=== PATIENT | male | born 1970 | race Caucasian/White ===

== ENCOUNTER 2022-12-30 12:56 | Emergency (ER) | payer OTHER, SELFPAY ==
[2022-12-30 14:12] VITALS: BMI 30.5
[2022-12-30 14:21] VITALS: BP 142/86; PULSE 58; O2SAT 96
[2022-12-30] MEDS: KETOROLAC 30 MG/ML VIAL IM (15:27)
[2022-12-30] MEDS: CYCLOBENZAPRINE 10 MG TABLET PO (15:27)
[2022-12-30] MEDS: OXYCODONE/ACETAMINOPHEN 5/325 TABLET 1 TAB PO (16:20)
[2022-12-30] MEDS: HYDROMORPHONE 1 MG INJ IM (17:39)
[2022-12-30] MEDS: LIDOCAINE PATCH 1 EACH ADH..PATCH TOP (17:47)
--- NOTE | 2022-12-30 18:22 | DI.CT.S_ITS ---
PROCEDURE: CT LUMBAR SPINE WO CON INDICATIONS: Lower back pain TECHNIQUE: Noncontrast 3 mm thick sections acquired from the T12 level to the sacrum. Sagittal and coronal reformats were constructed. For radiation dose reduction, the following was used: automated exposure control. COMPARISON: None. FINDINGS: Image quality: Excellent. Bones: There is mild levocurvature; otherwise normal bony alignment. No acute vertebral body compression fractures. No suspicious lytic or blastic bony lesions. No pars defects. There is degenerative disc disease, mild at T10-T11 and L3-L4, mild at L2-L3, L4-L5 and L5-S1. Mild facet arthropathy at L3-L4, L4-L5 and L5-S1 bilaterally. Soft tissues: No retroperitoneal masses or hematomas. Visualized aorta is normal in caliber. IMPRESSION: 1. No acute osseous abnormalities. 2. Degenerative changes as described. Dictated by: Boogie Mukherjee M.D. on 12/30/2022 at 19:05 Approved by: Boogie Mukherjee M.D. on 12/30/2022 at 19:08
--- NOTE | 2022-12-30 18:27 | ED_ITS ---
HPI - Back Pain/Injury <Sid Yun PA-C - Last Filed: 01/06/23 19:04> General Chief Complaint: Back Pain/Injury Stated Complaint: severe lower back pain Time Seen by Provider: 12/30/22 14:33 Source: patient History of Present Illness HPI Narrative: 52-year-old male with no reported past medical history presents to the ED with 1 day of lower back pain. 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 Patient states he was unable to stand or walk after that. Patient reports that the pain is right of the midline in the lower back region. Pain does not radiate. Patient denies numbness, tingling, weakness, saddle paresthesias, urinary hesitancy, urinary incontinence, bowel incontinence. Patient denies drug use. Related Data Allergies Allergy/AdvReac Type Severity Reaction Status Date / Time No Known Drug Allergies Allergy Verified 12/30/22 14:12 Review of Systems <Sid Yun PA-C - Last Filed: 01/06/23 19:04> Review of Systems ROS Unobtainable: All systems reviewed & are unremarkable except as noted in HPI and below Constitutional Constitutional: Denies chills, Denies fatigue, Denies fever(s), Denies frequent falls, Denies lethargy and Denies weakness Eyes Eyes: Denies change in vision, Denies eye discharge, Denies irritation and Denies loss of vision ENT Ears, Nose, Mouth, and Throat: Denies change in voice, Denies dizziness, Denies neck pain, Denies sore throat and Denies throat swelling Cardiovascular Cardiovascular: Denies chest pain, Denies irregular heart rhythm, Denies lightheadedness, Denies palpitations, Denies dyspnea, Denies dyspnea on exertion and Denies orthopnea Respiratory Respiratory: Denies cough, Denies dyspnea, Denies dyspnea on exertion and Denies wheezing Gastrointestinal Gastrointestinal: Denies abdominal pain, Denies change in bowel habits, Denies diarrhea, Denies nausea and Denies vomiting Genitourinary Genitourinary: Denies hematuria, Denies flank pain, Denies urinary incontinence and Denies urinary urgency Musculoskeletal Musculoskeletal: Reports back pain, Denies muscle weakness, Denies neck pain, Denies numbness and Denies tingling Integumentary/Breasts Skin/Breast: Denies pruritus, Denies erythema, Denies rash and Denies wounds Neurologic Neurologic: Denies behavioral changes, Denies confusion, Denies dizziness, Denies frequent falls, Denies loss of vision, Denies numbness, Denies tingling and Denies weakness Psychiatric Psychiatric: Denies anxiety, Denies behavioral changes, Denies confusion, Denies depression, Denies homicidal ideation and Denies suicidal ideation Endocrine Endocrine: Denies fatigue, Denies flushing and Denies palpitations Hematologic/Lymphatic Hematologic/Lymphatic: Denies easy bruising Allergic/Immunologic Allergic/Immunologic: Denies urticaria, Denies throat swelling and Denies wheezing Patient History <Sid Yun PA-C - Last Filed: 01/06/23 19:04> Social History Smoking Status: Never smoker Smoking Status: Never smoker alcohol intake frequency: holidays/special occasions only Substance Use Type: does not use Exam <Sid Yun PA-C - Last Filed: 01/06/23 19:04> Narrative Exam Narrative: Const General:?cooperative, healthy appearing and comfortable [facility] Head:?normal to inspection Ears:?hearing grossly normal bilaterally Nose:?external nose normal Face and sinus:?normal facial exam and sinuses nontender Mouth:?oral mucosae normal Throat:?posterior oropharynx normal Eyes General:?appearance normal, both eyes and all related structures Neck Neck:?normal visual inspection and no lymphadenopathy noted Resp Effort & Inspection:?normal respiratory effort Auscultation:?clear to auscultation bilaterally Cardio Rate:?regular rate Rhythm:?regular rhythm Musculoskeletal No midline tenderness to palpation. No paraspinal tenderness to palpation. No bruising, rashes visualized on exam. Range of motion limited by pain. Strength and sensation intact. Patient appears neurovascularly intact. Neuro General:?patient alert, patient awake and patient oriented x3 Initial Vital Signs Initial Vital Signs: Vital Signs Pulse Rate 58 L 12/30/22 14:21 Blood Pressure 142/86 H 12/30/22 14:21 Pulse Oximetry 96 12/30/22 14:21 Oxygen Delivery Method 12/30/22 14:21 <Osman Han DO - Last Filed: 01/06/23 19:15> Initial Vital Signs Initial Vital Signs: Vital Signs Pulse Rate 58 L 12/30/22 14:21 Blood Pressure 142/86 H 12/30/22 14:21 Pulse Oximetry 96 12/30/22 14:21 Oxygen Delivery Method 12/30/22 14:21 Course <Sid Yun PA-C - Last Filed: 01/06/23 19:04> Orders Ordered: Discontinued Medications Cephalexin HCl (Cephalexin 250 Mg Capsule) 500 mg PO NOW ONE Stop: 12/30/22 17:07 Last Admin: 12/30/22 18:27 Dose: Not Given Documented By: KARLEY Cyclobenzaprine HCl (Cyclobenzaprine 10 Mg Tablet) 10 mg PO NOW ONE Stop: 12/30/22 15:19 Last Admin: 12/30/22 15:27 Dose: 10 mg Documented By: LEONIE Diazepam (Diazepam 5 Mg Tablet) 10 mg PO NOW ONE Stop: 12/30/22 20:00 Last Admin: 12/30/22 20:20 Dose: 10 mg Documented By: RANJAN Hydromorphone HCl (Hydromorphone 1 Mg Inj) 1 mg IM NOW ONE Stop: 12/30/22 17:34 Last Admin: 12/30/22 17:39 Dose: 1 mg Documented By: LEONIE Ketorolac Tromethamine (Ketorolac 30 Mg/Ml Vial) 30 mg IM NOW ONE Stop: 12/30/22 15:19 Last Admin: 12/30/22 15:27 Dose: 30 mg Documented By: LEONIE Lidocaine (Lidocaine Patch 1 Each Adh..Patch) 1 each TOP NOW ONE Stop: 12/30/22 17:18 Last Admin: 12/30/22 17:47 Dose: 1 each Documented By: LEONIE Methocarbamol (Methocarbamol 500 Mg Tablet) 750 mg PO NOW ONE Stop: 12/30/22 18:21 Last Admin: 12/30/22 18:44 Dose: 750 mg Documented By: LEONIE Oxycodone/Acetaminophen (Oxycodone/Acetaminophen 5/325 Tablet) 1 tab PO NOW ONE Stop: 12/30/22 16:17 Last Admin: 12/30/22 16:20 Dose: 1 tab Documented By: LEONIE Trimethoprim/Sulfamethoxazole (Trimeth/Sulfa 160/800 (Ds) Tablet) 1 tab PO NOW ONE Stop: 12/30/22 17:07 Last Admin: 12/30/22 18:28 Dose: Not Given Documented By: KARLEY Vital Signs Vital signs: Vital Signs - 8 hr 12/30/22 14:21 12/30/22 20:47 Pulse Rate 58 L 60 Respiratory Rate 16 Blood Pressure 142/86 H 153/86 H Pulse Oximetry 96 95 Oxygen Delivery Method Room Air Room Air <Osman Han DO - Last Filed: 01/06/23 19:15> Orders Ordered: Discontinued Medications Cephalexin HCl (Cephalexin 250 Mg Capsule) 500 mg PO NOW ONE Stop: 12/30/22 17:07 Last Admin: 12/30/22 18:27 Dose: Not Given Documented By: KARLEY Cyclobenzaprine HCl (Cyclobenzaprine 10 Mg Tablet) 10 mg PO NOW ONE Stop: 12/30/22 15:19 Last Admin: 12/30/22 15:27 Dose: 10 mg Documented By: LEONIE Diazepam (Diazepam 5 Mg Tablet) 10 mg PO NOW ONE Stop: 12/30/22 20:00 Last Admin: 12/30/22 20:20 Dose: 10 mg Documented By: RANJAN Hydromorphone HCl (Hydromorphone 1 Mg Inj) 1 mg IM NOW ONE Stop: 12/30/22 17:34 Last Admin: 12/30/22 17:39 Dose: 1 mg Documented By: LEONIE Ketorolac Tromethamine (Ketorolac 30 Mg/Ml Vial) 30 mg IM NOW ONE Stop: 12/30/22 15:19 Last Admin: 12/30/22 15:27 Dose: 30 mg Documented By: LEONIE Lidocaine (Lidocaine Patch 1 Each Adh..Patch) 1 each TOP NOW ONE Stop: 12/30/22 17:18 Last Admin: 12/30/22 17:47 Dose: 1 each Documented By: LEONIE Methocarbamol (Methocarbamol 500 Mg Tablet) 750 mg PO NOW ONE Stop: 12/30/22 18:21 Last Admin: 12/30/22 18:44 Dose: 750 mg Documented By: LEONIE Oxycodone/Acetaminophen (Oxycodone/Acetaminophen 5/325 Tablet) 1 tab PO NOW ONE Stop: 12/30/22 16:17 Last Admin: 12/30/22 16:20 Dose: 1 tab Documented By: LEONIE Trimethoprim/Sulfamethoxazole (Trimeth/Sulfa 160/800 (Ds) Tablet) 1 tab PO NOW ONE Stop: 12/30/22 17:07 Last Admin: 12/30/22 18:28 Dose: Not Given Documented By: KARLEY Vital Signs Vital signs: Vital Signs - 8 hr 12/30/22 14:21 12/30/22 20:47 Pulse Rate 58 L 60 Respiratory Rate 16 Blood Pressure 142/86 H 153/86 H Pulse Oximetry 96 95 Oxygen Delivery Method Room Air Room Air MDM - Back Pain/Injury <Sid Yun PA-C - Last Filed: 01/06/23 19:04> MDM Narrative Medical decision making narrative: 52-year-old male with no reported past medical history presents to the ED with 1 day of lower back pain. Concern for fracture/dislocation versus musculoskeletal sprain/strain. There is no midline tenderness to palpation or paraspinal tenderness to palpation. Patient was given Toradol, Flexeril with minimal relief. Patient reassessed, patient given Percocet again with minimal relief. Patient was reassessed again, given a lidocaine patch, Dilaudid, ice pack. Nayeli ent still unable to sit up, stand or walk without sharp pains. Will obtain a CT of lumbar spine. Will reassess. No improvement. Cold pack given. Patient given methocarbamol, heat pack, Valium. Will reassess. Patient states that his pain has not significantly improved with all the medications. Patient seems comfortable laying supine, however says that when he tries to put any weight on his back such as standing up or sitting down, he has sharp shooting pains that are intolerable. Patient offered to stay overnight in the ED, seek a physical therapy consultation in the morning to determine next steps for care. At this point patient would like to go home, will re-evaluate at 10:00 p.m. if he is able to sit up and leave. Patient agrees to stay if he is unable to sit up. Patient was successfully discharged, able to ambulate well enough go home with his son. Discharge Plan Departure Patient Disposition: Home Clinical Impression: Lower back pain Instructions: DI for Low Back Pain Activity Restrictions/Additional Instructions: You were evaluated in the ED today for lower back pain. Your physical exam and history was reassuring. Your symptoms are likely due to a musculoskeletal sprain/strain. Your CT lumbar spine showed no acute findings. You were treated with Toradol and Flexeril, Percocet, lidocaine patch, dilaudid, ice pack, warm pack, methocarbamol, valium. You are being prescribed Flexeril to use at home. You may take ibuprofen 800 mg 3 times a day with food for the inflammation and pain. Please follow-up with your PCP as soon as possible. Return to the ED if you experience any numbness, tingling, weakness, difficulty urinating. Referrals: Bo Peguero DO [Primary Care Provider] - Stand Alone Forms: Patient Portal/API <Osman Han DO - Last Filed: 01/06/23 19:15> Cosign ED Attending Nylaature Attestation: I was immediately available in the department for consultation. Documentation has been reviewed. I agree with assessment and plan.
[2022-12-30] MEDS: methocarbamoL 500 MG TABLET 750 MG PO (18:44)
[2022-12-30 19:30] VITALS: BP 164/90; PULSE 60; RESP 16; O2SAT 96
[2022-12-30] MEDS: diazePAM 5 MG TABLET 10 MG PO (20:20)
[2022-12-30 20:47] VITALS: BP 153/86; PULSE 60; RESP 16; O2SAT 95
[2022-12-30 21:30] VITALS: BP 150/80; PULSE 60; RESP 16; TEMP 37; O2SAT 96
== END 2022-12-30 22:00 | disposition home or self-care (01) ==
PROVIDERS: Emergency Provider Student in an Organized Health Care Education/Training Program; PCP Family Medicine
DX: M54.50 Low back pain, unspecified (principal)
CPT/HCPCS: 72131; 96372; 99284; J1170; J1885